=== PATIENT | female | born 1965 | race Caucasian/White ===

== ENCOUNTER 2016-12-13 20:17 | Emergency (ER) | payer MEDICAID, OTHER ==
[~2016-12-13] VITALS: Ht 162.6 cm; Wt 69.4 kg
[~2016-12-13 20:17] MED LIST: CIPROFLOXACIN500 M2 ORAL; CLINDAMYCIN HC300 MG ORAL; OCUFLOX5 ML OP; ZOFRAN4 MG ORAL
[2016-12-13] MEDS ORDERED: PROZAC40 MG ORAL (20:30)
[2016-12-13] MEDS ORDERED: ACETAMINOPHEN-1 EAC1 ORAL (20:51)
--- NOTE | 2016-12-13 21:15 | Emergency Room Report ---
History of Present Illness General Chief Complaint: Lower Extremity Injury Source: Patient Present Illness HPI [id number] hit lower left ankle on curb while walking dog No ankle twist No other injury Able to ambulate NO pain to foot Allergies: Coded Allergies: PENICILLINS (Unverified Allergy, Unknown, 11/05/13) Patient History Past Medical History: none Past Surgical History: none Pertinent Family History: none Social History: Denies: alcohol use, drug use, smoking Now: No Immunizations: UTD Reviewed Nursing Documentation: PMH: Agreed, PSxH: Agreed Nursing Documentation-PMH Past Medical History: No Stated History Review of Systems All Other Systems: negative except mentioned in HPI Physical Exam Vital Signs Date Time Temp Pulse Resp B/P Pulse Ox O2 Delivery O2 Flow Rate FiO2 12/13/16 20:24 97.9 73 16 110/75 97 Room Air Sp02 EP Interpretation: reviewed, normal General Appearance: normal inspection, well appearing, no apparent distress, alert, GCS 15, non-toxic Head: normocephalic, atraumatic Eyes: bilateral eye EOMI, bilateral eye PERRL ENT: normal ENT inspection, hearing grossly normal, normal voice Neck: normal inspection, full range of motion, supple, no bony tend Respiratory: normal inspection, lungs clear, normal breath sounds, no respiratory distress, no retraction, no wheezing Cardiovascular #1: regular rate, rhythm, no edema Gastrointestinal: normal inspection, normal bowel sounds, non tender, soft, no guarding, no hernia Genitourinary: no CVA tenderness Musculoskeletal: other - Left ankle: Point ttp to left distal fibula. No obvious swelling, deformity. Non-tender foot, lower extremity, knee Neurologic: normal inspection, alert, oriented x3, responsive, clinical lab clerk III-XII nml as tested, motor strength/tone normal, speech normal Psychiatric: normal inspection, judgement/insight normal, mood/affect normal Skin: normal inspection, normal color, no rash Procedures Splinting Splinting : Hand-Made Type: plaster Splint: posterior long Pre-Proc Neuro Vasc Exam: normal Post-Proc Neuro Vasc Exam: normal Patient Tolerated: Well Complications: None Medical Decision Making Diagnostic Impression: Primary Impression: Ankle fracture, left Qualified Codes: S82.892A - Other fracture of left lower leg, initial encounter for closed fracture ER Course Splint applied RICE, crutches Non weight bearing Ortho followup Other X-Ray Diagnostic Results Other X-Ray Diagnostic Results : X-Ray ordered: Left ankle # of Views/Limited Vs Complete: 3 View Indication: Pain EP Interpretation: Yes Interpretation: no dislocation, no soft tissue swelling, other - Fx of distal fibula Interpreting ER Provider: Signed by Dr Lakhwinder Nelson mD Last Vital Signs Date Time Temp Pulse Resp B/P Pulse Ox O2 Delivery O2 Flow Rate FiO2 12/13/16 20:24 97.9 73 16 110/75 97 Room Air Status: improved Disposition: HOME, SELF-CARE Condition: Improved Scripts Acetaminophen With Codeine (T#3) (TYLENOL #3 TAB*) Y Tab 1 TAB ORAL BID Y for Severe Pain (Pain Scale 7-10) for 7 Days, #20 TAB Prov: LAKHWINDER NELSON M.D. 12/13/16 Patient Instructions: Cast or Splint Care, [id number], Ankle Fracture, Easy- to-Read Additional Instructions: - Keep splint clean/dry - Do NOT walk on foot - use crutches - T#3 and ice for pain - Follow up with Orthopedist in 2-3 days LAKHWINDER NELSON M.D. Dec 13, 2016 21:15
[2016-12-13 21:49] VITALS: BP 110/75
--- NOTE | 2016-12-14 10:46 | Diagnostic Imaging Report ---
Indication: PAIN Technique: 3 views of the left ankle Comparison: none Findings: Lucency at the tip of the distal fibula is suspicious for acute fracture. This is nondisplaced. There is slight overlying soft tissue swelling. No other acute fractures. No dislocations. Joint spaces are preserved. Impression: Positive for fracture of the tip of the distal fibula This agrees with the preliminary interpretation provided by the emergency room physician
== END 2016-12-13 21:49 | disposition home or self-care (01) ==
LOC: EMR 20:56
DX: S82.492A Other fracture of shaft of left fibula, initial encounter for closed fracture (principal); W22.8XXA Striking against or struck by other objects, initial encounter; Y93.K1 Activity, walking an animal; Y92.480 Sidewalk as the place of occurrence of the external cause; Z88.0 Allergy status to penicillin
CPT/HCPCS: 29515; 99283

== ENCOUNTER 2016-12-14 13:47 | Emergency (ER) | payer OTHER ==
[~2016-12-14] VITALS: Ht 162.6 cm; Wt 69.4 kg
[~2016-12-14 13:47] MED LIST changes: +ACETAMINOPHEN-1 EAC1 ORAL; +PROZAC40 MG ORAL
[2016-12-14 14:20] VITALS: BP 127/79
[2016-12-14 15:10] VITALS: BP 150/89
--- NOTE | 2016-12-14 15:12 | Emergency Room Report ---
History of Present Illness General Chief Complaint: General Complaint Source: Patient Present Illness HPI The patient is a 51 yo F presenting for L ankle splint change. She was seen in this ED yesterday for fracture of the fibula and placed in a coaptation splint. She states that she had to citlali her dog and the splint became loose. She denies any pain. She denies other symptoms such as N, V, F, chills, numbness/ tingling, rash Allergies: Coded Allergies: PENICILLINS (Unverified Allergy, Unknown, 11/05/13) Patient History Past Medical History: see triage record Pertinent Family History: none Last Menstrual Period: menopause Reviewed Nursing Documentation: PMH: Agreed, PSxH: Agreed Nursing Documentation-PMH Past Medical History: No Stated History Review of Systems All Other Systems: negative except mentioned in HPI Physical Exam Vital Signs Date Time Temp Pulse Resp B/P Pulse Ox O2 Delivery O2 Flow Rate FiO2 12/14/16 13:51 97.5 81 16 149/99 100 Room Air Sp02 EP Interpretation: reviewed, normal General Appearance: no apparent distress, alert, GCS 15, non-toxic Head: normocephalic, atraumatic Eyes: bilateral eye PERRL, bilateral eye normal inspection ENT: hearing grossly normal, normal pharynx, no angioedema, normal voice Neck: full range of motion, supple/symm/no masses Musculoskeletal: back normal, normal range of motion, tender - TTP over the L lateral ankle Neurologic: alert, oriented x3, responsive, motor strength/tone normal, sensory intact, speech normal Skin: normal color, no rash, warm/dry, well hydrated Lymphatic: no adenopathy Procedures Splinting Splinting : Consent: Verbal Location: L ankle Hand-Made Type: plaster Splint: coaptation Pre-Proc Neuro Vasc Exam: normal Post-Proc Neuro Vasc Exam: normal Patient Tolerated: Well Complications: None Medical Decision Making PA Attestation Dr. Donovan is my supervising physician. Patient management was discussed with my supervising physician Diagnostic Impression: Primary Impression: Ankle fracture, left Qualified Codes: S82.892D - Other fracture of left lower leg, subsequent encounter for closed fracture with routine healing ER Course The patient is a 51-year-old female presenting for splint change for left ankle fracture Ddx considered include but not limited to sprain/strain, fracture, contusion, compartment syndrome, among others PE: NAD L ankle: splint removed. No skin changes. Mild edema to L lateral ankle. SILT. A splint is remade and the patient will FU with PMD and orthopedics. Last Vital Signs Date Time Temp Pulse Resp B/P Pulse Ox O2 Delivery O2 Flow Rate FiO2 12/14/16 14:20 98.1 81 14 127/79 95 Room Air Status: improved Disposition: HOME, SELF-CARE Condition: Improved Referrals: [facility]ERR[facility] (PCP) Patient Instructions: Ankle Fracture Additional Instructions: I discussed my findings with the patient. All questions and concerns have been answered. Treatment and medication compliance have been addressed. I advised the patient that they need to follow up with orthopedics as soon as possible. Return to ED if pain remains or worsens, numbness or tingling occurs, new rash is noticed, fever is noticed, or if needed for any reason. Patient verbalized understanding of discharge instructions. KATT MCCABE Dec 14, 2016 15:12
[2016-12-14 15:26] VITALS: BP 150/89
== END 2016-12-14 15:28 | disposition home or self-care (01) ==
LOC: EMR 14:25
DX: S82.402D Unspecified fracture of shaft of left fibula, subsequent encounter for closed fracture with routine healing (principal); X58.XXXD Exposure to other specified factors, subsequent encounter; Z47.89 Encounter for other orthopedic aftercare
CPT/HCPCS: 29515; 99283